=== PATIENT | male | born 1960 | race Caucasian/White ===

== ENCOUNTER → 2017-01-03 | Outpatient (CLI) | payer BC ==
[~2017-01-03] MED LIST: AMIT10TA PO; AMIT25TA PO; AZEL0.1S3; DIGO0.127 PO; E-Z-GAS II EFFERVESCENT PACKET (SODIUM BICARB./CITRIC ACID/SIMETHICONE) As Ordered ONE; E-Z-HD 98% w/w 340GM SUSP BTL As Ordered ONE; E-Z-PAQUE 96% w/w SUSP 176GM BTL As Ordered ONE; ESCI10TA2 PO; ESCI20TA PO; FOLI1TAB2 PO; HYDR200T3 PO; LOSA100T36 PO; MAGN400T5 PO; METO-209 PO; METO100T PO; MULT1TAB10 PO; OMEP40CA2 PO; THIA100TA PO; VITA100072 PO; VITMTA PO; XARE20TA PO; ZOLP10TA2 PO
--- NOTE | 2017-01-03 16:53 | REP ---
ESOPHAGRAM, AIR CONTRAST: The procedure was performed under the direct supervision of Dr. Cotter. The images were reviewed with Dr. Cotter. A single view PA chest x-ray is submitted as a commercial production editor film. The superior mediastinal structures are midline. The heart size is within normal limits. There is a hiatal hernia visualized. The lungs are clear. There is a multi-lead AICD pace maker in place. Liquid barium and gas-producing granules were given in the erect position as well as liquid barium in the prone oblique position in order to perform a double-contrast esophagram examination. The oral and pharyngeal stages of deglutition are unremarkable. Esophageal transport is prompt and efficient and there is no esophagitis or stricture. There is a hiatal hernia present. There is a nonobstructive Schatzki's B ring identified. There is gastroesophageal reflux demonstrated to above the level of the sweta. IMPRESSION: There is a hiatal hernia present. There is a nonobstructive Schatzki's B ring identified. There is gastroesophageal reflux demonstrated to above the level of the sweta. 1 minute and 23 seconds of fluoroscopic time was utilized for this procedure. Reviewed by BHUMI Davis 01/04/2017 03:36 PEdited and Signed by Harsha Cotter MD 01/04/2017 04:26 P
== END ==
LOC: M RAD 09:06
PROVIDERS: ATTEND Emergency Medicine
DX: R13.14 Dysphagia, pharyngoesophageal phase (principal); K44.9 Diaphragmatic hernia without obstruction or gangrene; K22.2 Esophageal obstruction

== ENCOUNTER → 2017-07-19 | Outpatient (REF) | payer BC ==
[~2017-07-19] MED LIST changes: -E-Z-GAS II EFFERVESCENT PACKET (SODIUM BICARB./CITRIC ACID/SIMETHICONE) As Ordered ONE; -E-Z-HD 98% w/w 340GM SUSP BTL As Ordered ONE; -E-Z-PAQUE 96% w/w SUSP 176GM BTL As Ordered ONE; -FOLI1TAB2 PO; +FOLI1TAB4 PO; -METO-209 PO; -METO100T PO; +METO100T5 PO; +METO1TAB33 PO
[2017-07-19 13:17] LABS: ALBUMIN 3.2 GM/DL (3.2-5.2); ALBUMIN/GLOBULIN RATIO 0.74 (1.00-1.93); ALKALINE PHOSPHATASE 61 U/L (45-117); ALT/SGPT 62 U/L (12-78); ANION GAP 9 MEQ/L (8-16); AST/SGOT 48 U/L (15-37); BILIRUBIN,TOTAL 0.7 MG/DL (0.2-1.0); BLOOD UREA NITROGEN 14 MG/DL (7-18); CALCIUM LEVEL 8.5 MG/DL (8.5-10.1); CARBON DIOXIDE LEVEL 26 MEQ/L (21-32); CHLORIDE LEVEL 105 MEQ/L (98-107); CHOLESTEROL LEVEL 170 MG/DL (<200); DIGOXIN LEVEL 0.5 NG/ML (0.5-2.0); FREE T4 0.77 NG/DL (0.76-1.46); GLOMERULAR FILTRATION RATE > 60.0 (>56); GLUCOSE, FASTING 92 MG/DL (70-105); MAGNESIUM LEVEL 2.1 MG/DL (1.8-2.4); POTASSIUM SERUM 4.1 MEQ/L (3.5-5.1); SODIUM LEVEL 140 MEQ/L (136-145); TOTAL PROTEIN 7.5 GM/DL (6.4-8.2); TRIGLYCERIDES LEVEL 217 MG/DL (<150)
== END ==
LOC: M LABDRAW1 09:20
PROVIDERS: ATTEND Emergency Medicine
DX: E05.90 Thyrotoxicosis, unspecified without thyrotoxic crisis or storm (principal); E55.9 Vitamin D deficiency, unspecified; I48.2 Chronic atrial fibrillation; R73.01 Impaired fasting glucose

== ENCOUNTER → 2018-01-24 | Outpatient (CLI) | payer BC ==
[2018-01-24 10:21] LABS: ESTIMATED AVERAGE GLUCOSE 103 MG/DL (60-110); HEMOGLOBIN A1c 5.2 %
[2018-01-24 11:02] LABS: ALBUMIN 3.4 GM/DL (3.2-5.2); ALBUMIN/GLOBULIN RATIO 0.74 (1.00-1.93); ALKALINE PHOSPHATASE 71 U/L (45-117); ALT/SGPT 50 U/L (12-78); ANION GAP 7 MEQ/L (8-16); AST/SGOT 49 U/L (7-37); BILIRUBIN,TOTAL 0.9 MG/DL (0.2-1.0); BLOOD UREA NITROGEN 15 MG/DL (7-18); CALCIUM LEVEL 8.5 MG/DL (8.5-10.1); CARBON DIOXIDE LEVEL 27 MEQ/L (21-32); CHLORIDE LEVEL 104 MEQ/L (98-107); CHOLESTEROL LEVEL 190 MG/DL (<200); CHOLESTEROL RISK RATIO 5.277 (<5); CREATININE FOR GFR 1.19 MG/DL (0.70-1.30); DIGOXIN LEVEL 0.4 NG/ML (0.5-2.0); FREE T4 0.93 NG/DL (0.76-1.46); GLOMERULAR FILTRATION RATE > 60.0 (>56); GLUCOSE, FASTING 97 MG/DL (70-100); HDL CHOLESTEROL 36 MG/DL (>40); LDL CHOLESTEROL 109.2 MG/DL (<100); MAGNESIUM LEVEL 2.3 MG/DL (1.8-2.4); NON-HDL-C 154 MG/DL; POTASSIUM SERUM 4.2 MEQ/L (3.5-5.1); SODIUM LEVEL 138 MEQ/L (136-145); TRIGLYCERIDES LEVEL 224 MG/DL (<150)
== END ==
LOC: M LAB 09:33
DX: E55.9 Vitamin D deficiency, unspecified (principal); I48.2 Chronic atrial fibrillation; R73.01 Impaired fasting glucose; E05.90 Thyrotoxicosis, unspecified without thyrotoxic crisis or storm
CPT/HCPCS: 80162

== ENCOUNTER → 2018-07-30 | Outpatient (CLI) | payer SELFPAY, BC ==
[2018-07-30 06:57] LABS: BASO # 0.1 10^3/uL (0.0-0.2); BASO % 0.7 % (0.0-1.0); EOS # 0.5 10^3/uL (0.0-0.50); EOS % 7.2 % (0.0-3.0); HEMATOCRIT 40.8 % (42.0-52.0); HEMOGLOBIN 14.4 g/dl (13.5-17.5); IMMATURE GRANULOCYTE % 0.3 % (0-3.0); LYMPH # 2.1 10^3/uL (1.5-4.5); LYMPH % 30.4 % (24.0-44.0); MEAN CORPUSCULAR HEMOGLOBIN 33.7 pg (27.0-33.0); MEAN CORPUSCULAR HGB CONC 35.3 g/dl (32.0-36.5); MEAN CORPUSCULAR VOLUME 95.6 fl (80.0-96.0); MONO # 0.7 10^3/uL (0.0-0.8); MONO % 9.8 % (0.0-5.0); NEUTROPHILS # 3.6 10^3/uL (1.8-7.7); NEUTROPHILS % 51.6 % (36.0-66.0); PLATELET COUNT, AUTOMATED 184 10^3/uL (150-450); RED BLOOD COUNT 4.27 10^6/uL (4.30-6.10); RED CELL DISTRIBUTION WIDTH 12.4 % (11.5-14.5); WHITE BLOOD COUNT 6.9 10^3/uL (4.0-10.0)
[2018-07-30 07:13] LABS: ESTIMATED AVERAGE GLUCOSE 100 MG/DL (60-110); HEMOGLOBIN A1c 5.1 %
[2018-07-30 07:31] LABS: ALBUMIN 3.1 GM/DL (3.2-5.2); ALKALINE PHOSPHATASE 62 U/L (45-117); ALT/SGPT 65 U/L (12-78); ANION GAP 11 MEQ/L (8-16); AST/SGOT 63 U/L (7-37); BILIRUBIN,TOTAL 0.4 MG/DL (0.2-1.0); BLOOD UREA NITROGEN 12 MG/DL (7-18); CALCIUM LEVEL 8.4 MG/DL (8.5-10.1); CARBON DIOXIDE LEVEL 25 MEQ/L (21-32); CHLORIDE LEVEL 106 MEQ/L (98-107); CHOLESTEROL LEVEL 173 MG/DL (<200); CHOLESTEROL RISK RATIO 5.242 (<5); CREATININE FOR GFR 0.94 MG/DL (0.70-1.30); DIGOXIN LEVEL 0.3 NG/ML (0.5-2.0); FREE T4 0.94 NG/DL (0.76-1.46); GLOMERULAR FILTRATION RATE > 60.0 (>56); GLUCOSE, FASTING 92 MG/DL (70-100); HDL CHOLESTEROL 33 MG/DL (>40); LDL CHOLESTEROL 86.2 MG/DL (<100); MAGNESIUM LEVEL 2.1 MG/DL (1.8-2.4); NON-HDL-C 140 MG/DL; SODIUM LEVEL 142 MEQ/L (136-145); TOTAL PROTEIN 7.5 GM/DL (6.4-8.2); TRIGLYCERIDES LEVEL 269 MG/DL (<150)
[2018-07-30 10:03] LABS: TOTAL 25(OH) VITAMIN D 64.2 NG/ML (30.0-100.0)
== END ==
LOC: M LAB 06:20
DX: I48.2 Chronic atrial fibrillation (principal)
CPT/HCPCS: 80162

== ENCOUNTER → 2018-09-23 | Outpatient (REF) | payer BC ==
[2018-09-23 16:02] LABS: PSA SCREENING 0.43 NG/ML (< 4.0)
== END ==
LOC: M LABDRAW1 15:36
DX: N40.1 Benign prostatic hyperplasia with lower urinary tract symptoms (principal)
CPT/HCPCS: G0103

== ENCOUNTER → 2019-01-15 | Outpatient (REF) | payer BC ==
[~2019-01-15] MED LIST changes: +FOLI1TAB11 PO; -FOLI1TAB4 PO; -LOSA100T36 PO; +LOSA100T50 PO
[2019-01-21 00:06] LABS: FATS NEUTRAL Normal (.); FATS TOTAL Normal (.); PANCREATIC ELASTASE STOOL >500 (>200)
== END ==
LOC: M LAB REF 10:25
PROVIDERS: ATTEND Physician Assistant Medical
DX: R19.7 Diarrhea, unspecified (principal)

== ENCOUNTER → 2019-01-15 | Outpatient (CLI) | payer BC ==
[2019-01-15 07:37] LABS: BASO # 0.1 10^3/uL (0.0-0.2); BASO % 1.2 % (0.0-1.0); EOS # 0.6 10^3/uL (0.0-0.50); EOS % 8.4 % (0.0-3.0); HEMATOCRIT 45.9 % (42.0-52.0); HEMOGLOBIN 15.9 g/dl (13.5-17.5); LYMPH # 1.9 10^3/uL (1.5-4.5); LYMPH % 27.8 % (24.0-44.0); MEAN CORPUSCULAR HEMOGLOBIN 33.1 pg (27.0-33.0); MEAN CORPUSCULAR HGB CONC 34.6 g/dl (32.0-36.5); MEAN CORPUSCULAR VOLUME 95.6 fl (80.0-96.0); MONO # 0.8 10^3/uL (0.0-0.8); MONO % 11.1 % (0.0-5.0); NEUTROPHILS # 3.5 10^3/uL (1.8-7.7); NEUTROPHILS % 51.2 % (36.0-66.0); PLATELET COUNT, AUTOMATED 178 10^3/uL (150-450); WHITE BLOOD COUNT 6.8 10^3/uL (4.0-10.0)
[2019-01-15 08:13] LABS: ALT/SGPT 61 U/L (12-78); BILIRUBIN,TOTAL 0.7 MG/DL (0.2-1.0); BLOOD UREA NITROGEN 10 MG/DL (7-18); CALCIUM LEVEL 8.3 MG/DL (8.5-10.1); CARBON DIOXIDE LEVEL 26 MEQ/L (21-32); CHLORIDE LEVEL 106 MEQ/L (98-107); CREATININE FOR GFR 0.92 MG/DL (0.70-1.30); FREE T4 0.94 NG/DL (0.76-1.46); GLOMERULAR FILTRATION RATE > 60.0 (>56); GLUCOSE, FASTING 100 MG/DL (70-100); SODIUM LEVEL 139 MEQ/L (136-145); TOTAL PROTEIN 7.6 GM/DL (6.4-8.2)
== END ==
LOC: M LAB 06:58
PROVIDERS: ATTEND Physician Assistant Medical
DX: R19.7 Diarrhea, unspecified (principal)

== ENCOUNTER → 2019-01-29 | Outpatient (CLI) | payer BC ==
[~2019-01-29] MED LIST changes: +AZEL1SPR3; +DIGO0.12 PO; +E-Z-GAS II EFFERVESCENT PACKET (SODIUM BICARB./CITRIC ACID/SIMETHICONE) As Ordered ONE; +E-Z-HD 98% w/w 340GM SUSP BTL As Ordered ONE; +E-Z-PAQUE 96% w/w SUSP 176GM BTL As Ordered ONE
--- NOTE | 2019-01-29 17:20 | REP ---
Esophagram The procedure was performed under the direct supervision of Dr. Mullen. The images were reviewed with Dr. Mullen. A single view PA chest x-ray is submitted as a drafter cartographic film. The superior mediastinal structures are midline. The heart size is within normal limits. The lungs are clear. There is a multi lead AICD pacer with an epicardial lead unchanged from the previous chest x-ray performed on 07/16/2016. Liquid barium and gas producing granules were given in the erect position as well as liquid barium in the prone oblique positions in order to perform a double contrast esophagram examination. The oral and pharyngeal stages of deglutition are unremarkable. Esophageal transport is prompt and efficient and there is no esophagitis, stricture or mucosal ring. There is a sliding type hiatal hernia. There is mild gastroesophageal reflux demonstrated to below the level of the sweta. Impression: There is a sliding type hiatal hernia. There is mild gastroesophageal reflux demonstrated to below the level of the sweta. 0.9 minutes of fluoro time was utilized for this procedure. Reviewed by BHUMI Davis 01/29/2019 05:10 P Electronically Signed by Vitor Mullen MD 01/29/2019 05:10 P
== END ==
LOC: M RAD 07:33
PROVIDERS: ATTEND Physician Assistant Medical
DX: K44.9 Diaphragmatic hernia without obstruction or gangrene (principal); K21.9 Gastro-esophageal reflux disease without esophagitis

== ENCOUNTER 2019-02-12 09:43 | Day surgery (SDC) | payer BC ==
[~2019-02-12] VITALS: Ht 180.3 cm; Wt 110.7 kg
[~2019-02-12 09:43] MED LIST changes: -E-Z-GAS II EFFERVESCENT PACKET (SODIUM BICARB./CITRIC ACID/SIMETHICONE) As Ordered ONE; -E-Z-HD 98% w/w 340GM SUSP BTL As Ordered ONE; -E-Z-PAQUE 96% w/w SUSP 176GM BTL As Ordered ONE
[2019-02-12] MEDS ORDERED: NS 1,000 ML IV ONE (10:30)
[2019-02-12] MEDS ORDERED: PROPOFOL 200 MG/20 ML VIAL As Ordered ONE ×3 (11:17→11:31)
[2019-02-12] MEDS ORDERED: LIDOCAINE 2% INJ 100 MG/5 ML SDV (FOR ANES.) As Ordered ONE (11:18)
--- NOTE | 2019-02-12 11:31 | ROOR ---
Patient Name: Maurilio Garcia Procedure Date: 02/12/2019 11:09 AM Date of : 1960 Age: 58 Room: [facility], [facility]IN [facility] Gender: Male Note Status: Finalized Procedure: Upper GI endoscopy Indications: Dysphagia, Heartburn Providers: Alexei HARRINGTON MD Referring MD: Yvan Choudhary Requesting Provider: Medicines: Monitored Anesthesia Care Complications: No immediate complications. Procedure: Pre-Anesthesia Assessment: - The heart rate, respiratory rate, oxygen saturations, blood pressure, adequacy of pulmonary ventilation, and response to care were monitored throughout the procedure. The Endoscope was introduced through the mouth, and advanced to the second part of duodenum. The upper GI endoscopy was accomplished without difficulty. The patient tolerated the procedure well. Findings: A non-obstructing Schatzki ring was found in the lower third of the esophagus. A TTS dilator was passed through the scope. Dilation with an 18-19-20 mm balloon dilator was performed to 20 mm. The dilation site was examined and showed complete resolution of luminal narrowing. A small hiatal hernia was present. The exam was otherwise without abnormality. Impression: - Non-obstructing Schatzki ring. Dilated. - Small hiatal hernia. - The examination was otherwise normal. - No specimens collected. Recommendation: - Observe patient's clinical course. - Continue present medications. - Resume Xarelto (rivaroxaban) at prior dose tomorrow. Alexei Harrington MD Alexei HARRINGTON MD 02/12/2019 11:31:15 AM This report has been signed electronically. Number of Addenda: 0 Note Initiated On: 02/12/2019 11:09 AM Estimated Blood Loss: Estimated blood loss: none.
--- NOTE | 2019-02-12 11:45 | ROOR ---
Patient Name: Maurilio Garcia Procedure Date: 02/12/2019 11:11 AM Date of : 1960 Age: 58 Room: [facility] Gender: Male Note Status: Finalized Procedure: Colonoscopy Indications: High risk colon cancer surveillance: Personal history of colonic polyps, Last colonoscopy: December 2015, Incidental diarrhea noted Providers: Alexei HARRINGTON MD Referring MD: Yvan Choudhary Requesting Provider: Medicines: Monitored Anesthesia Care Complications: No immediate complications. Procedure: Pre-Anesthesia Assessment: - The heart rate, respiratory rate, oxygen saturations, blood pressure, adequacy of pulmonary ventilation, and response to care were monitored throughout the procedure. The Colonoscope was introduced through the anus and advanced to 10 cm into the ileum. The colonoscopy was performed without difficulty. The patient tolerated the procedure well. The quality of the bowel preparation was good. Findings: The perianal and digital rectal examinations were normal. A few small-mouthed diverticula were found in the sigmoid colon. The exam was otherwise normal throughout the examined colon. The terminal ileum appeared normal. Small Internal Hemorrhoids. Biopsies for histology were taken with a cold forceps for evaluation of microscopic colitis. Impression: - Minimal diverticulosis in the sigmoid colon and small Internal Hemorrhoids. - The colon is otherwise normal. - The terminal ileum ileum is normal. - Biopsies were taken with a cold forceps for evaluation of microscopic colitis. Recommendation: - Telephone endoscopist for pathology results in 2 weeks. Alexei Harrington MD Alexei HARRINGTON MD 02/12/2019 11:45:21 AM This report has been signed electronically. Number of Addenda: 0 Note Initiated On: 02/12/2019 11:11 AM Estimated Blood Loss: Estimated blood loss: none.
[2019-02-12 12:31] VITALS: BP 142/70
== END 2019-02-12 12:24 | disposition home or self-care (01) ==
LOC: M OPP 09:43
PROVIDERS: ATTEND Internal Medicine Gastroenterology
DX: Z12.11 Encounter for screening for malignant neoplasm of colon (principal); Z86.010 Personal history of colon polyps; K57.30 Diverticulosis of large intestine without perforation or abscess without bleeding; K64.8 Other hemorrhoids; K22.2 Esophageal obstruction; K44.9 Diaphragmatic hernia without obstruction or gangrene; R13.10 Dysphagia, unspecified; R12 Heartburn; G47.30 Sleep apnea, unspecified; I48.0 Paroxysmal atrial fibrillation; I42.0 Dilated cardiomyopathy; Z79.899 Other long term (current) drug therapy; Z95.810 Presence of automatic (implantable) cardiac defibrillator

== ENCOUNTER → 2019-02-17 | Outpatient (CLI) | payer BC ==
--- NOTE | 2019-02-17 10:48 | REP ---
RIGHT UPPER QUADRANT ULTRASOUND: Real-time sonographic evaluation of the right upper quadrant is performed. Gallbladder demonstrates no evidence of intraluminal sludge or calculi, wall thickening or pericholecystic fluid. There is no intrahepatic or extrahepatic biliary dilatation, common bile duct measuring 5 mm. Liver is moderately enlarged measuring approximately 21.7 cm in maximum craniocaudal dimension in the right midclavicular line. No liver mass is seen. There is diffuse heterogenous increased echotexture suggesting diffuse fibrofatty infiltration. The pancreas is grossly unremarkable but not optimally seen due to overlying bowel gas. Right kidney demonstrates no hydronephrosis with normal size of 12.3 cm in length. IMPRESSION: Findings compatible with diffuse fibrofatty infiltration of the liver. Moderate hepatomegaly. Electronically Signed by Vitor Mullen MD 02/18/2019 10:06 A
== END ==
LOC: M RAD 07:41
PROVIDERS: ATTEND Physician Assistant Medical
DX: R94.5 Abnormal results of liver function studies (principal); K76.0 Fatty (change of) liver, not elsewhere classified; R16.0 Hepatomegaly, not elsewhere classified

== ENCOUNTER → 2019-03-31 | Outpatient (CLI) | payer BC ==
[~2019-03-31] MED LIST changes: +VITA100018 PO; -VITA100072 PO
[2019-03-31 15:40] LABS: IRON (FE) 99 UG/DL (65-175); PERCENT SATURATION 33.3 % (19.7-50.0); TOTAL IRON BINDING CAPACITY 297 UG/DL (250-450)
[2019-03-31 15:41] LABS: INR 1.07
[2019-04-01 10:07] LABS: HEPATITIS B SURFACE ANTIGEN NEGATIVE (NEGATIVE)
[2019-04-01 10:34] LABS: HEPATITIS B CORE ANTIBODY IGM NEGATIVE (NEGATIVE)
[2019-04-01 10:36] LABS: HEPATITIS A ANTIBODY IGM NEGATIVE (NEGATIVE)
[2019-04-02 14:27] LABS: CERULOPLASMIN 19.9 mg/dL (16.0-31.0)
[2019-04-03 18:47] LABS: ANCA-ATYPICAL <1:20 titer (Neg:<1:20); ANTI DOUBLE STRAND-DNA AB 46 IU/mL (0-9); ANTI-MITOCHONDRIAL ANTIBODY <20.0 Units (0.0-20.0); ANTINUCLEAR ANTIBODIES DIRECT Positive (Negative); CYTOPLASMIC NEUTROP AB ANCA-C <1:20 titer (Neg:<1:20); PERINUCLEAR AB ANCA-P <1:20 titer (Neg:<1:20); RNP ANTIBODIES <0.2 AI (0.0-0.9); SJOGREN'S ANTI SS-A <0.2 AI (0.0-0.9); SJOGREN'S ANTI SS-B <0.2 AI (0.0-0.9); SMITH ANTIBODIES <0.2 AI (0.0-0.9)
== END ==
LOC: M LAB 14:06
PROVIDERS: ATTEND Physician Assistant Medical
DX: R94.5 Abnormal results of liver function studies (principal)

== ENCOUNTER → 2019-04-17 | Outpatient (CLI) | payer BC | LOC: M LAB 07:38 | PROVIDERS: ATTEND Physician Assistant Medical | DX: R94.5 Abnormal results of liver function studies (principal) ==

== ENCOUNTER → 2019-06-01 | Outpatient (CLI) | payer BC ==
[~2019-06-01] MED LIST changes: +LIDOCAINE 1% MDV 20ML VIAL As Ordered ONE
--- NOTE | 2019-06-02 17:46 | REP ---
Ultrasound-guided liver biopsy This procedure was performed by Aixa Watson [facility], under the direct supervision of Dr. Mullen. The risks and benefits of the procedure were explained to the patient and informed consent was obtained both verbally and written. Directly prior to the start of the procedure, a formal timeout was done in the procedure room. The left lobe of the liver was localized using ultrasound guidance. The skin was prepped and draped in a sterile fashion. 10 ml of 1% lidocaine was used as a local anesthetic. Using ultrasound guidance a small skin josh was made and a 19/20 gauge coaxial needle biopsy system was inserted and advanced into the liver. 4 core biopsy samples were obtained and sent to the lab. The patient tolerated the procedure well and there were no immediate complications. After the appropriate monitored convalescence the patient was discharged home from the department. Reviewed by BHUMI Berger 06/01/2019 01:36 P Electronically Signed by Vitor Mullen MD 06/02/2019 05:37 P
== END ==
LOC: M RADPRO 09:56
PROVIDERS: ATTEND Internal Medicine Gastroenterology
DX: K75.81 Nonalcoholic steatohepatitis (NASH) (principal); K74.2 Hepatic fibrosis with hepatic sclerosis; R94.5 Abnormal results of liver function studies; R93.3 Abnormal findings on diagnostic imaging of other parts of digestive tract; Z79.899 Other long term (current) drug therapy

== ENCOUNTER → 2019-09-25 | Outpatient (CLI) | payer BC ==
[~2019-09-25] MED LIST changes: -LIDOCAINE 1% MDV 20ML VIAL As Ordered ONE; -OMEP40CA2 PO; +OMEP40CA97 PO
[2019-09-25 10:58] LABS: BASO # 0.1 10^3/uL (0.0-0.2); BASO % 1.3 % (0.0-1.0); EOS # 0.4 10^3/uL (0.0-0.5); EOS % 6.8 % (0.0-3.0); HEMATOCRIT 46.1 % (42.0-52.0); HEMOGLOBIN 15.8 g/dl (13.5-17.5); LYMPH # 1.6 10^3/uL (1.5-5.0); LYMPH % 25.1 % (24.0-44.0); MEAN CORPUSCULAR HEMOGLOBIN 33.7 pg (27.0-33.0); MEAN CORPUSCULAR HGB CONC 34.3 g/dl (32.0-36.5); MEAN CORPUSCULAR VOLUME 98.3 fl (80.0-96.0); MONO # 0.7 10^3/uL (0.0-0.8); MONO % 11.7 % (0.0-5.0); NEUTROPHILS # 3.4 10^3/uL (1.5-8.5); NEUTROPHILS % 54.8 % (36.0-66.0); PLATELET COUNT, AUTOMATED 174 10^3/uL (150-450); RED BLOOD COUNT 4.69 10^6/uL (4.30-6.10); WHITE BLOOD COUNT 6.2 10^3/uL (4.0-10.0)
[2019-09-25 11:38] LABS: ALBUMIN 3.1 GM/DL (3.2-5.2); ALT/SGPT 71 U/L (12-78); BILIRUBIN,TOTAL 0.8 MG/DL (0.2-1.0); BLOOD UREA NITROGEN 12 MG/DL (7-18); CALCIUM LEVEL 8.6 MG/DL (8.5-10.1); CARBON DIOXIDE LEVEL 29 MEQ/L (21-32); CHLORIDE LEVEL 104 MEQ/L (98-107); CHOLESTEROL LEVEL 205 MG/DL (<200); CHOLESTEROL RISK RATIO 5.125 (<5); CREATININE FOR GFR 0.98 MG/DL (0.70-1.30); FREE T4 0.87 NG/DL (0.76-1.46); GLOMERULAR FILTRATION RATE > 60.0 (>56); GLUCOSE, FASTING 92 MG/DL (70-100); HDL CHOLESTEROL 40 MG/DL (>40); LDL CHOLESTEROL 125 MG/DL (<100); NON-HDL-C 165 MG/DL; POTASSIUM SERUM 4.1 MEQ/L (3.5-5.1); SODIUM LEVEL 140 MEQ/L (136-145); TOTAL PROTEIN 7.5 GM/DL (6.4-8.2); TRIGLYCERIDES LEVEL 199 MG/DL (<150)
[2019-09-25 11:39] LABS: HEMOGLOBIN A1c 5.2 %
[2019-09-25 11:40] LABS: TOTAL 25(OH) VITAMIN D 68.6 NG/ML (30.0-100.0)
== END ==
LOC: M LAB 10:13
PROVIDERS: ATTEND Family Medicine
DX: I11.9 Hypertensive heart disease without heart failure (principal); R73.01 Impaired fasting glucose; E05.90 Thyrotoxicosis, unspecified without thyrotoxic crisis or storm; E55.9 Vitamin D deficiency, unspecified

== ENCOUNTER → 2020-06-02 | Outpatient (CLI) | payer BC ==
[~2020-06-02] MED LIST changes: -DIGO0.12 PO; +DIGO0.123 PO
--- NOTE | 2020-06-03 03:51 | REP ---
REASON: Strain. PRIORS: None. There is mild posterior disc space narrowing and anterior lipping at every level. Vertebral body height and alignment is within normal limits. There is no spondylolysis or spondylolisthesis. Scattered partial syndesmophytes/marginal osteophytes are seen bilaterally. Pedicles are intact bilaterally. IMPRESSION: Chronic changes, as described above. Electronically Signed by Cristi Goyal DO 06/03/2020 09:14 A
== END ==
LOC: M WUC 11:31
PROVIDERS: ATTEND Physician Assistant
DX: S39.012A Strain of muscle, fascia and tendon of lower back, initial encounter (principal); X58.XXXA Exposure to other specified factors, initial encounter; Y92.89 Other specified places as the place of occurrence of the external cause

== ENCOUNTER → 2020-08-25 | Outpatient (CLI) | payer BC, OTHER ==
--- NOTE | 2020-08-26 13:05 | REPVR ---
PROCEDURE INFORMATION: Exam: CT Lumbar Spine Without Contrast Exam date and time: 08/25/2020 12:47 PM Age: 59 years old Clinical indication: Other: Disc degeneration, R/O hnp/stenosis TECHNIQUE: Imaging protocol: Computed tomography images of the lumbar spine without contrast. Radiation optimization: All CT scans at this facility use at least one of these dose optimization techniques: automated exposure control; mA and/or kV adjustment per patient size (includes targeted exams where dose is matched to clinical indication); or iterative reconstruction. COMPARISON: CR SPINE LS COMPLETE 06/02/2020 11:47 AM FINDINGS: Vertebrae: Normal alignment. There is worsening compression of the L4 vertebral body superior endplate now 30-35% Discs/Spinal canal/Neural foramina: T12/L1: No acute abnormality. L1/L2: Mild foraminal narrowing due to spurring bilaterally. No disc protrusion, disc extrusion or spinal stenosis. L2/3: Central disc bulging. No focal central protrusion or extrusion. No spinal stenosis. Mild to moderate foraminal narrowing due to spurring bilaterally. L3/4: Minimal indentation upon the anterior thecal sac due to the superior posterior corner of L4. There is spinal stenosis, minimal at 9.1 mm. There is a small foraminal protrusion on the right with mild to moderate foraminal narrowing. There is a small amount disc bulging mildly narrowing the left foramina. There is no central protrusion or extrusion. L4/5: There is diffuse central disc bulging. There is spinal stenosis at 7 mm. There is no focal protrusion or extrusion. Mild foraminal narrowing due to spurring is seen bilaterally. L5/S1: No acute abnormality except for mild foraminal narrowing on the left due to spurring. Soft tissues: Unremarkable. Arteries: There is an aneurysm at 22 x 20 mm of the left common iliac artery. IMPRESSION: Increasing L4 compression fracture since the plain film. Spinal stenosis mild at L3/4 moderate at L4/5. Foraminal narrowing as above. 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 Electronically signed by: Carlton Whaley On 08/25/2020 15:38:03 PM
== END ==
LOC: M RAD 12:29
PROVIDERS: ATTEND Physician Assistant
DX: M51.36 Other intervertebral disc degeneration, lumbar region (principal); Z95.0 Presence of cardiac pacemaker; M25.78 Osteophyte, vertebrae; M51.26 Other intervertebral disc displacement, lumbar region; I72.3 Aneurysm of iliac artery

== ENCOUNTER → 2021-01-24 | Outpatient (CLI) | payer OTHER ==
[~2021-01-24] MED LIST changes: -AMIT10TA PO; +AMIT10TA7 PO; -AMIT25TA PO; +AMIT25TA17 PO; +ESCI10TA16 PO; -ESCI10TA2 PO; -ESCI20TA PO; +ESCI20TA16 PO
[2021-01-24 14:15] LABS: BASO # 0.1 10^3/uL (0.0-0.2); BASO % 0.9 % (0.0-1.0); EOS # 0.3 10^3/uL (0.0-0.5); HEMOGLOBIN 15.6 g/dl (13.5-17.5); LYMPH # 1.2 10^3/uL (1.5-5.0); LYMPH % 23.4 % (24.0-44.0); MEAN CORPUSCULAR HEMOGLOBIN 33.7 pg (27.0-33.0); MEAN CORPUSCULAR HGB CONC 33.9 g/dl (32.0-36.5); MEAN CORPUSCULAR VOLUME 99.4 fl (80.0-96.0); MONO # 0.6 10^3/uL (0.0-0.8); MONO % 11.7 % (2.0-8.0); NEUTROPHILS # 3.1 10^3/uL (1.5-8.5); PLATELET COUNT, AUTOMATED 158 10^3/uL (150-450); RED BLOOD COUNT 4.63 10^6/uL (4.30-6.10); WHITE BLOOD COUNT 5.3 10^3/uL (4.0-10.0)
[2021-01-24 15:09] LABS: ALT/SGPT 67 U/L (12-78); BLOOD UREA NITROGEN 13 MG/DL (7-18); CALCIUM LEVEL 8.9 MG/DL (8.5-10.1); CARBON DIOXIDE LEVEL 28 MEQ/L (21-32); CHLORIDE LEVEL 105 MEQ/L (98-107); CHOLESTEROL LEVEL 182 MG/DL (<200); CHOLESTEROL RISK RATIO 3.791 (<5); CREATININE FOR GFR 1.04 MG/DL (0.70-1.30); GLOMERULAR FILTRATION RATE > 60.0 (>56); GLUCOSE, FASTING 104 MG/DL (70-100); HDL CHOLESTEROL 48 MG/DL (>40); LDL CHOLESTEROL 104 MG/DL (<100); NON-HDL-C 134 MG/DL; POTASSIUM SERUM 6.3 MEQ/L (3.5-5.1); SODIUM LEVEL 136 MEQ/L (136-145); TOTAL 25(OH) VITAMIN D 65.2 NG/ML (30.0-100.0); TOTAL PROTEIN 8.2 GM/DL (6.4-8.2); TRIGLYCERIDES LEVEL 151 MG/DL (<150)
== END ==
LOC: M PLALAB 10:22
PROVIDERS: ATTEND Nurse Practitioner Family
DX: I48.91 Unspecified atrial fibrillation (principal); E55.9 Vitamin D deficiency, unspecified; Z79.899 Other long term (current) drug therapy

== ENCOUNTER → 2021-01-25 | Outpatient (CLI) | payer OTHER | LOC: M PLALAB 11:12 | PROVIDERS: ATTEND Nurse Practitioner Family | DX: E87.5 Hyperkalemia (principal) ==

== ENCOUNTER → 2021-04-14 | Outpatient (CLI) | payer OTHER | LOC: M LABSMTC 09:39 | PROVIDERS: ATTEND Internal Medicine Cardiovascular Disease | DX: Z20.828 Contact with and (suspected) exposure to other viral communicable diseases (principal); Z11.59 Encounter for screening for other viral diseases ==

== ENCOUNTER → 2021-07-06 | Outpatient (CLI) | payer OTHER ==
[~2021-07-06] MED LIST changes: +OMEP40CA4 PO; -OMEP40CA97 PO
[2021-07-06 11:17] LABS: BASO # 0.1 10^3/uL (0.0-0.2); EOS # 0.5 10^3/uL (0.0-0.5); EOS % 7.6 % (0.0-3.0); HEMATOCRIT 47.1 % (42.0-52.0); HEMOGLOBIN 16.2 g/dl (13.5-17.5); LYMPH # 1.4 10^3/uL (1.5-5.0); LYMPH % 22.6 % (24.0-44.0); MEAN CORPUSCULAR HEMOGLOBIN 33.8 pg (27.0-33.0); MEAN CORPUSCULAR HGB CONC 34.4 g/dl (32.0-36.5); MEAN CORPUSCULAR VOLUME 98.1 fl (80.0-96.0); MONO # 0.7 10^3/uL (0.0-0.8); MONO % 10.6 % (2.0-8.0); NEUTROPHILS # 3.6 10^3/uL (1.5-8.5); NEUTROPHILS % 57.9 % (36.0-66.0); PLATELET COUNT, AUTOMATED 163 10^3/uL (150-450); WHITE BLOOD COUNT 6.2 10^3/uL (4.0-10.0)
[2021-07-06 12:07] LABS: ALT/SGPT 64 U/L (12-78); BILIRUBIN,TOTAL 0.7 MG/DL (0.2-1.0); BLOOD UREA NITROGEN 13 MG/DL (7-18); CALCIUM LEVEL 9.1 MG/DL (8.5-10.1); CARBON DIOXIDE LEVEL 29 MEQ/L (21-32); CHLORIDE LEVEL 105 MEQ/L (98-107); CHOLESTEROL LEVEL 191 MG/DL (<200); CHOLESTEROL RISK RATIO 4.441 (<5); GLOMERULAR FILTRATION RATE > 60.0 (>56); GLUCOSE, FASTING 80 MG/DL (70-100); HDL CHOLESTEROL 43 MG/DL (>40); LDL CHOLESTEROL 117 MG/DL (<100); NON-HDL-C 148 MG/DL; POTASSIUM SERUM 4.2 MEQ/L (3.5-5.1); SODIUM LEVEL 138 MEQ/L (136-145); TOTAL PROTEIN 7.9 GM/DL (6.4-8.2); TRIGLYCERIDES LEVEL 156 MG/DL (<150)
== END ==
LOC: M PLALAB 09:01
PROVIDERS: ATTEND Family Medicine
DX: I11.9 Hypertensive heart disease without heart failure (principal)

== ENCOUNTER 2022-04-18 18:21 | Emergency (ER) | payer OTHER ==
[~2022-04-18] VITALS: Ht 180.3 cm; Wt 115.4 kg
[~2022-04-18 18:21] MED LIST changes: +LOSA100T45 PO; -LOSA100T50 PO
[2022-04-18] MEDS ORDERED: NS 1,000 ML IV ONE (18:45)
[2022-04-18] MEDS ORDERED: ASPIRIN 81 MG CHEW TABLET PO ONE (18:45)
[2022-04-18] MEDS ORDERED: AMIODARONE HCL 150 MG in IV 1 EA IV STA ×2 (18:46→18:55)
[2022-04-18] MEDS ORDERED: AMIODARONE HCL 150 MG/100 ML PREMIXED BAG (NEXTERONE) (J0282 PER 30MG) As Ordered ONE (18:47)
[2022-04-18] MEDS ORDERED: AMIODARONE 150MG/3ML INJ (J0282) IVP STA (18:49)
[2022-04-18] MEDS ORDERED: fentaNYL 100 MCG/2 ML INJECTION IV ONE (18:50)
[2022-04-18 18:58] LABS: BASO # 0.1 10^3/uL (0.0-0.2); BASO % 0.8 % (0.0-1.0); EOS # 0.4 10^3/uL (0.0-0.5); EOS % 4.7 % (0.0-3.0); HEMATOCRIT 42.9 % (42.0-52.0); HEMOGLOBIN 15.1 g/dl (13.5-17.5); LYMPH # 1.7 10^3/uL (1.5-5.0); LYMPH % 22.4 % (24.0-44.0); MEAN CORPUSCULAR HEMOGLOBIN 34.2 pg (27.0-33.0); MEAN CORPUSCULAR HGB CONC 35.2 g/dl (32.0-36.5); MEAN CORPUSCULAR VOLUME 97.3 fl (80.0-96.0); MONO % 12.9 % (2.0-8.0); NEUTROPHILS # 4.5 10^3/uL (1.5-8.5); NEUTROPHILS % 58.9 % (36.0-66.0); PLATELET COUNT, AUTOMATED 182 10^3/uL (150-450); RED BLOOD COUNT 4.41 10^6/uL (4.30-6.10); WHITE BLOOD COUNT 7.7 10^3/uL (4.0-10.0)
[2022-04-18 19:09] LABS: INR 1.12; PROTHROMBIN TIME 14.8 SECONDS (12.7-14.5)
[2022-04-18] MEDS ORDERED: AMIODARONE HCL 360 MG in IV 1 EA IV SCH (19:15)
[2022-04-18 19:29] LABS: CK-MB VALUE MASS 3.7 NG/ML (<3.6); MB/CK RELATIVE INDEX 1.81 (< OR =4)
[2022-04-18 19:35] LABS: BLOOD UREA NITROGEN 21 MG/DL (7-18); CARBON DIOXIDE LEVEL 22 MEQ/L (21-32); CHLORIDE LEVEL 109 MEQ/L (98-107); CREATININE FOR GFR 1.12 MG/DL (0.70-1.30); DIGOXIN LEVEL 0.4 NG/ML (0.5-2.0); GLOMERULAR FILTRATION RATE > 60.0 (>49); GLUCOSE, FASTING 109 MG/DL (70-100); POTASSIUM SERUM 4.3 MEQ/L (3.5-5.1); SODIUM LEVEL 137 MEQ/L (136-145)
[2022-04-18 22:42] LABS: RSV AMPLIFICATION NEGATIVE (NEGATIVE)
[2022-04-18 22:45] LABS: CK-MB VALUE MASS 10.8 NG/ML (<3.6); MB/CK RELATIVE INDEX 1.22 (< OR =4)
[2022-04-18] MEDS ORDERED: ENOXAPARIN 120MG/0.8ML SYRINGE (J1650 PER 10MG) SC ONE (22:50)
[2022-04-18 23:49] LABS: CK-MB VALUE MASS 11.7 NG/ML (<3.6); MB/CK RELATIVE INDEX 1.12 (< OR =4)
[2022-04-19 00:32] LABS: NT-PRO BNP 499 PG/ML (<125)
[2022-04-19] MEDS: AMIODARONE HCL 360 MG in IV 1 EA IV SCH ×4 (02:12→02:18)
[2022-04-19] MEDS ORDERED: NS 1,000 ML IV SCH (06:25)
[2022-04-19 11:38] VITALS: BP 132/70
[2022-04-19] MEDS ORDERED: ENOXAPARIN 120MG/0.8ML SYRINGE (J1650 PER 10MG) SC SCH (14:00)
== END 2022-04-19 11:38 | disposition short-term general hospital (02) ==
LOC: M ED 18:21 → EDBD 18:21 → M ED 04-19 11:38
DX: I21.4 Non-ST elevation (NSTEMI) myocardial infarction (principal); I47.2 Ventricular tachycardia; R94.31 Abnormal electrocardiogram [ECG] [EKG]; I10 Essential (primary) hypertension; F17.200 Nicotine dependence, unspecified, uncomplicated; Z86.79 Personal history of other diseases of the circulatory system; Z79.899 Other long term (current) drug therapy
CPT/HCPCS: 71045; 80048; 80162; 82550; 82553; 83735; 83880; 84443; 84484; 85025; 85610; 87631; 93005; 93041; 94760; 96365; 96366; 96375; 96376; 99285; J0282; J1650; J3010

== ENCOUNTER → 2022-06-09 | Outpatient (CLI) | payer MEDICARE ==
[2022-06-09 08:53] LABS: BASO # 0.1 10^3/uL (0.0-0.2); BASO % 1.2 % (0.0-1.0); EOS # 0.3 10^3/uL (0.0-0.5); EOS % 4.4 % (0.0-3.0); HEMATOCRIT 43.2 % (42.0-52.0); HEMOGLOBIN 14.4 g/dl (13.5-17.5); LYMPH # 1.4 10^3/uL (1.5-5.0); LYMPH % 21.4 % (24.0-44.0); MEAN CORPUSCULAR HEMOGLOBIN 33.5 pg (27.0-33.0); MEAN CORPUSCULAR HGB CONC 33.3 g/dl (32.0-36.5); MEAN CORPUSCULAR VOLUME 100.5 fl (80.0-96.0); MONO # 0.8 10^3/uL (0.0-0.8); MONO % 12.3 % (2.0-8.0); NEUTROPHILS % 60.4 % (36.0-66.0); PLATELET COUNT, AUTOMATED 176 10^3/uL (150-450); WHITE BLOOD COUNT 6.7 10^3/uL (4.0-10.0)
[2022-06-09 09:21] LABS: ALBUMIN 2.4 GM/DL (3.2-5.2); ALT/SGPT 43 U/L (12-78); BILIRUBIN,TOTAL 0.5 MG/DL (0.2-1.0); BLOOD UREA NITROGEN 14 MG/DL (7-18); CALCIUM LEVEL 8.5 MG/DL (8.8-10.2); CARBON DIOXIDE LEVEL 26 MEQ/L (21-32); CHLORIDE LEVEL 108 MEQ/L (98-107); CHOLESTEROL LEVEL 158 MG/DL (<200); CHOLESTEROL RISK RATIO 4.051 (<5); CREATININE FOR GFR 0.91 MG/DL (0.70-1.30); GLOMERULAR FILTRATION RATE > 60.0 (>49); GLUCOSE, FASTING 97 MG/DL (70-100); HDL CHOLESTEROL 39 MG/DL (>40); LDL CHOLESTEROL 93 MG/DL (<100); NON-HDL-C 119 MG/DL; POTASSIUM SERUM 4.4 MEQ/L (3.5-5.1); SODIUM LEVEL 141 MEQ/L (136-145); TOTAL PROTEIN 7.2 GM/DL (6.4-8.2); TRIGLYCERIDES LEVEL 129 MG/DL (<150)
== END ==
LOC: M LAB 08:22
PROVIDERS: ATTEND Family Medicine
DX: I42.9 Cardiomyopathy, unspecified (principal); Z79.899 Other long term (current) drug therapy

== ENCOUNTER → 2022-10-05 | Outpatient (CLI) | payer MEDICARE ==
[2022-10-05 10:54] LABS: HEMOGLOBIN A1c 5.3 %
[2022-10-05 10:59] LABS: ALBUMIN 2.7 GM/DL (3.2-5.2); ALT/SGPT 53 U/L (12-78); BLOOD UREA NITROGEN 12 MG/DL (7-18); CALCIUM LEVEL 8.4 MG/DL (8.8-10.2); CARBON DIOXIDE LEVEL 24 MEQ/L (21-32); CHLORIDE LEVEL 106 MEQ/L (98-107); CHOLESTEROL LEVEL 161 MG/DL (<200); CHOLESTEROL RISK RATIO 3.354 (<5); CREATININE FOR GFR 1.04 MG/DL (0.70-1.30); GLOMERULAR FILTRATION RATE > 60.0 (>49); GLUCOSE, FASTING 113 MG/DL (70-100); HDL CHOLESTEROL 48 MG/DL (>40); LDL CHOLESTEROL 97 MG/DL (<100); NON-HDL-C 113 MG/DL; POTASSIUM SERUM 3.9 MEQ/L (3.5-5.1); SODIUM LEVEL 139 MEQ/L (136-145); TOTAL PROTEIN 7.5 GM/DL (6.4-8.2); TRIGLYCERIDES LEVEL 79 MG/DL (<150)
== END ==
LOC: M PLALAB 08:48
PROVIDERS: ATTEND Registered Nurse
DX: I11.9 Hypertensive heart disease without heart failure (principal); Z79.899 Other long term (current) drug therapy

== ENCOUNTER → 2022-12-26 | Outpatient (CLI) | payer MEDICARE ==
[2022-12-26 15:43] LABS: HEMATOCRIT 43.4 % (42.0-52.0); HEMOGLOBIN 14.3 g/dl (13.5-17.5); MEAN CORPUSCULAR HEMOGLOBIN 34.2 pg (27.0-33.0); MEAN CORPUSCULAR HGB CONC 32.9 g/dl (32.0-36.5); MEAN CORPUSCULAR VOLUME 103.8 fl (80.0-96.0); PLATELET COUNT, AUTOMATED 173 10^3/uL (150-450); RED BLOOD COUNT 4.18 10^6/uL (4.30-6.10); WHITE BLOOD COUNT 6.6 10^3/uL (4.0-10.0)
[2022-12-26 15:50] LABS: CALCIUM LEVEL 8.4 MG/DL (8.3-10.6); CREATININE FOR GFR 1.35 MG/DL (0.70-1.30); GLOMERULAR FILTRATION RATE 57.2 (>49); POTASSIUM SERUM 4.4 MMOL/L (3.5-5.1)
== END ==
LOC: M PLALAB 12:45
PROVIDERS: ATTEND Nurse Practitioner Family
DX: I50.22 Chronic systolic (congestive) heart failure (principal)

== ENCOUNTER → 2023-04-18 | Outpatient (CLI) | payer MEDICARE ==
[~2023-04-18] MED LIST changes: -LOSA100T45 PO; +LOSA100T46 PO
[2023-04-18 14:38] LABS: BLOOD UREA NITROGEN 17 MG/DL (9-23); CALCIUM LEVEL 8.6 MG/DL (8.3-10.6); CARBON DIOXIDE LEVEL 28 MMOL/L (20-31); CHLORIDE LEVEL 103 MMOL/L (98-107); CREATININE FOR GFR 1.12 MG/DL (0.70-1.30); GLOMERULAR FILTRATION RATE > 60.0 (>49); GLUCOSE, FASTING 114 MG/DL (74-106); MAGNESIUM LEVEL 1.6 MG/DL (1.8-2.4); POTASSIUM SERUM 4.7 MMOL/L (3.5-5.1); SODIUM LEVEL 138 MMOL/L (136-145)
== END ==
LOC: M PLALAB 11:25
PROVIDERS: ATTEND Nurse Practitioner Family
DX: I48.91 Unspecified atrial fibrillation (principal)

== ENCOUNTER → 2023-06-20 | Outpatient (CLI) | payer MEDICARE ==
[~2023-06-20] MED LIST changes: -HYDR200T3 PO; +HYDR200T46 PO
[2023-06-20 13:19] LABS: HEMOGLOBIN A1c 5.3 % (4.0-6.0)
[2023-06-20 13:35] LABS: ALBUMIN 2.5 G/DL (3.2-5.2); ALKALINE PHOSPHATASE 88 U/L (46-116); ALT/SGPT 49 U/L (7.0-40); AST/SGOT 65 U/L (<34); BILIRUBIN,TOTAL 1.3 MG/DL (0.3-1.2); BLOOD UREA NITROGEN 13 MG/DL (9-23); CALCIUM LEVEL 8.1 MG/DL (8.3-10.6); CARBON DIOXIDE LEVEL 26 MMOL/L (20-31); CHLORIDE LEVEL 106 MMOL/L (98-107); CHOLESTEROL LEVEL 169 MG/DL (<200); CHOLESTEROL RISK RATIO 4.72 (<5); CREATININE FOR GFR 0.88 MG/DL (0.70-1.30); GLOMERULAR FILTRATION RATE > 60.0 (>49); GLUCOSE, FASTING 105 MG/DL (74-106); HDL CHOLESTEROL 35.8 MG/DL (>40); LDL CHOLESTEROL 108.4 MG/DL (<100); NON-HDL-C 133.2 MG/DL; SODIUM LEVEL 140 MMOL/L (136-145); TOTAL PROTEIN 7.2 G/DL (5.7-8.2); TRIGLYCERIDES LEVEL 124 MG/DL (<150)
== END ==
LOC: M PLALAB 09:20
PROVIDERS: ATTEND Registered Nurse
DX: I11.9 Hypertensive heart disease without heart failure (principal)

== ENCOUNTER 2023-10-15 09:13 | Day surgery (SDC) | payer MEDICARE ==
[~2023-10-15] VITALS: Ht 180.3 cm; Wt 112.9 kg
[~2023-10-15 09:13] MED LIST changes: +ACETYLCHOLINE OPHTH SOLN 1% 2ML (MIOCHOL-E) As Ordered ONE; -AMIT25TA17 PO; +AMIT25TA19 PO; +CEFUROXIME 1MG/0.1ML INTRACAMERAL INJ As Ordered ONE; +CYCLOPENTOLATE 1% OPHTH SOLN 2ML BTL OD SCH; +DICY-61 PO; +ELIQ5TAB PO; +ERGO500029 PO; +FLURBIPROFEN 0.03% OPHTH SOLN 2.5 ML OD SCH; +FURO20TA2 PO; +LEXA1TAB2 PO; +LIDOCAINE 1% SDV 5ML VIAL As Ordered ONE; +LR 1,000 ML IV SCH; +MAGN240P PO; +MIDAZOLAM INJ 2MG/2ML VIAL As Ordered ONE; +MULT-90 PO; +OFLOXACIN 0.3 % (OCUFLOX) OPTH SOL 5ML OD SCH; +PHENYLEPHRINE 2.5% OPHTH SOL 2ML OD SCH; +PROPARACAINE 0.5% OPHTH SOL 15ML OD ONE; +SOTA80TA32 PO; +SPIR-10 PO; +TETRACAINE 0.5% OPHTH SOLN 4ML OD SCH; +TROPICAMIDE 1% OPHTH SOLN 15ML OD SCH; +fentaNYL 100 MCG/2 ML INJECTION As Ordered ONE
[2023-10-15] MEDS ORDERED: BSS IRR 500ML/OMIDRIA 4ML IRR BAG (OR ONLY) As Ordered ONE (10:16)
[2023-10-15] MEDS ORDERED: TOBRADEX OPHTH OINT 3.5 GM As Ordered ONE (11:28)
[2023-10-15 11:32] VITALS: BP 139/78; TEMP 97.6; O2SAT 95
== END 2023-10-15 12:36 | disposition home or self-care (01) ==
LOC: M SDC 09:13
PROVIDERS: ATTEND Ophthalmology
DX: H25.11 Age-related nuclear cataract, right eye (principal); I48.91 Unspecified atrial fibrillation; G47.30 Sleep apnea, unspecified; Z79.899 Other long term (current) drug therapy; Z95.0 Presence of cardiac pacemaker; Z95.810 Presence of automatic (implantable) cardiac defibrillator
CPT/HCPCS: 66984; J0697; J1097; J2250; J3010; V2632

== ENCOUNTER 2023-11-26 09:08 | Day surgery (SDC) | payer MEDICARE ==
[~2023-11-26] VITALS: Ht 180.3 cm; Wt 113.4 kg
[~2023-11-26 09:08] MED LIST changes: -ACETYLCHOLINE OPHTH SOLN 1% 2ML (MIOCHOL-E) As Ordered ONE; -CYCLOPENTOLATE 1% OPHTH SOLN 2ML BTL OD SCH; +CYCLOPENTOLATE 1% OPHTH SOLN 2ML BTL OS SCH; -FLURBIPROFEN 0.03% OPHTH SOLN 2.5 ML OD SCH; -LR 1,000 ML IV SCH; -MIDAZOLAM INJ 2MG/2ML VIAL As Ordered ONE; -OFLOXACIN 0.3 % (OCUFLOX) OPTH SOL 5ML OD SCH; +OFLOXACIN 0.3 % (OCUFLOX) OPTH SOL 5ML OS SCH; -PHENYLEPHRINE 2.5% OPHTH SOL 2ML OD SCH; +PHENYLEPHRINE 2.5% OPHTH SOL 2ML OS SCH; -PROPARACAINE 0.5% OPHTH SOL 15ML OD ONE; +PROPARACAINE 0.5% OPHTH SOL 15ML OS ONE; -TETRACAINE 0.5% OPHTH SOLN 4ML OD SCH; -TROPICAMIDE 1% OPHTH SOLN 15ML OD SCH; +TROPICAMIDE 1% OPHTH SOLN 15ML OS SCH; -fentaNYL 100 MCG/2 ML INJECTION As Ordered ONE
[2023-11-26] MEDS ORDERED: MIDAZOLAM INJ 2MG/2ML VIAL As Ordered ONE (09:28)
[2023-11-26] MEDS ORDERED: fentaNYL 100 MCG/2 ML INJECTION As Ordered ONE (09:28)
[2023-11-26] MEDS ORDERED: BSS IRR 500ML/OMIDRIA 4ML IRR BAG (OR ONLY) As Ordered ONE (10:22)
[2023-11-26] MEDS ORDERED: TOBRADEX OPHTH OINT 3.5 GM As Ordered ONE (10:28)
[2023-11-26 10:36] VITALS: BP 109/58; TEMP 97.4; O2SAT 98
== END 2023-11-26 11:12 | disposition home or self-care (01) ==
LOC: M SDC 09:08
PROVIDERS: ATTEND Ophthalmology
DX: H25.12 Age-related nuclear cataract, left eye (principal); I10 Essential (primary) hypertension; I48.91 Unspecified atrial fibrillation; Z95.810 Presence of automatic (implantable) cardiac defibrillator; Z79.01 Long term (current) use of anticoagulants; Z79.899 Other long term (current) drug therapy; K21.9 Gastro-esophageal reflux disease without esophagitis; G47.30 Sleep apnea, unspecified; Z88.1 Allergy status to other antibiotic agents
CPT/HCPCS: 66984; J0697; J1097; J2250; J3010; V2632

== ENCOUNTER → 2023-12-11 | Outpatient (CLI) | payer MEDICARE ==
[~2023-12-11] MED LIST changes: -CEFUROXIME 1MG/0.1ML INTRACAMERAL INJ As Ordered ONE; -CYCLOPENTOLATE 1% OPHTH SOLN 2ML BTL OS SCH; -LIDOCAINE 1% SDV 5ML VIAL As Ordered ONE; -OFLOXACIN 0.3 % (OCUFLOX) OPTH SOL 5ML OS SCH; -PHENYLEPHRINE 2.5% OPHTH SOL 2ML OS SCH; -PROPARACAINE 0.5% OPHTH SOL 15ML OS ONE; -TROPICAMIDE 1% OPHTH SOLN 15ML OS SCH
== END ==
LOC: M WHC 12:10
PROVIDERS: ATTEND Registered Nurse
DX: N63.12 Unspecified lump in the right breast, upper inner quadrant (principal); N62 Hypertrophy of breast
CPT/HCPCS: 77066; G0279

== ENCOUNTER → 2023-12-13 | Outpatient (CLI) | payer MEDICARE ==
[2023-12-13 16:23] LABS: BASO # 0.1 10^3/uL (0.0-0.2); EOS # 0.5 10^3/uL (0.0-0.5); EOS % 8.3 % (0.0-3.0); HEMATOCRIT 43.1 % (42.0-52.0); HEMOGLOBIN 14.7 g/dl (13.5-17.5); LYMPH # 1.2 10^3/uL (1.5-5.0); LYMPH % 19.1 % (24.0-44.0); MEAN CORPUSCULAR HEMOGLOBIN 35.2 pg (27.0-33.0); MEAN CORPUSCULAR HGB CONC 34.1 g/dl (32.0-36.5); MEAN CORPUSCULAR VOLUME 103.1 fl (80.0-96.0); MONO % 15.8 % (2.0-8.0); NEUTROPHILS # 3.4 10^3/uL (1.5-8.5); NEUTROPHILS % 55.6 % (36.0-66.0); PLATELET COUNT, AUTOMATED 121 10^3/uL (150-450); RED BLOOD COUNT 4.18 10^6/uL (4.30-6.10); WHITE BLOOD COUNT 6.1 10^3/uL (4.0-10.0)
[2023-12-13 16:48] LABS: ALBUMIN 2.5 G/DL (3.2-5.2); ALKALINE PHOSPHATASE 106 U/L (46-116); ALT/SGPT 43 U/L (7.0-40); AST/SGOT 60 U/L (<34); BILIRUBIN,TOTAL 0.9 MG/DL (0.3-1.2); BLOOD UREA NITROGEN 15 MG/DL (9-23); CALCIUM LEVEL 8.1 MG/DL (8.3-10.6); CARBON DIOXIDE LEVEL 28 MMOL/L (20-31); CHLORIDE LEVEL 106 MMOL/L (98-107); CREATININE FOR GFR 0.98 MG/DL (0.70-1.30); GLOMERULAR FILTRATION RATE > 60.0 (>49); GLUCOSE, FASTING 78 MG/DL (74-106); POTASSIUM SERUM 4.2 MMOL/L (3.5-5.1); SODIUM LEVEL 138 MMOL/L (136-145); TOTAL PROTEIN 7.4 G/DL (5.7-8.2)
== END ==
LOC: M PLALAB 12:07
PROVIDERS: ATTEND Registered Nurse
DX: R60.0 Localized edema (principal)

== ENCOUNTER 2024-02-01 00:01 | Observation (INO) | payer MEDICARE ==
[~2024-02-01] VITALS: Ht 180.3 cm; Wt 111.8 kg
[2024-02-01 02:29] LABS: BASO % 0.5 % (0.0-1.0); EOS # 0.6 10^3/uL (0.0-0.5); EOS % 6.5 % (0.0-3.0); HEMATOCRIT 40.5 % (42.0-52.0); HEMOGLOBIN 14.2 g/dl (13.5-17.5); LYMPH # 1.2 10^3/uL (1.5-5.0); LYMPH % 13.9 % (24.0-44.0); MEAN CORPUSCULAR HEMOGLOBIN 35.8 pg (27.0-33.0); MEAN CORPUSCULAR HGB CONC 35.1 g/dl (32.0-36.5); MONO # 0.8 10^3/uL (0.0-0.8); MONO % 9.6 % (2.0-8.0); NEUTROPHILS % 68.7 % (36.0-66.0); PLATELET COUNT, AUTOMATED 141 10^3/uL (150-450); RED BLOOD COUNT 3.97 10^6/uL (4.30-6.10); WHITE BLOOD COUNT 8.8 10^3/uL (4.0-10.0)
[2024-02-01 02:43] LABS: INR 1.27; PARTIAL THROMBOPLASTIN TIME 35.1 SECONDS (24.8-34.2); PROTHROMBIN TIME 15.5 SECONDS (12.5-14.5)
[2024-02-01 02:56] LABS: ETHYL ALCOHOL (ETHANOL) 0.241 % (0.000-0.010)
[2024-02-01 02:59] LABS: BLOOD UREA NITROGEN 14 MG/DL (9-23); CALCIUM LEVEL 7.1 MG/DL (8.3-10.6); CARBON DIOXIDE LEVEL 24 MMOL/L (20-31); CHLORIDE LEVEL 96 MMOL/L (98-107); CREATININE FOR GFR 1.22 MG/DL (0.70-1.30); GLOMERULAR FILTRATION RATE > 60.0 (>49); GLUCOSE, FASTING 93 MG/DL (74-106); POTASSIUM SERUM 4.7 MMOL/L (3.5-5.1); SODIUM LEVEL 125 MMOL/L (136-145)
[2024-02-01 04:51] LABS: RSV AMPLIFICATION NEGATIVE (NEGATIVE)
[2024-02-01] MEDS ORDERED: ONDANSETRON 4MG 2ML VIAL IV PRN (05:35)
[2024-02-01] MEDS: NS 1,000 ML IV SCH (06:21)
[2024-02-01] MEDS ORDERED: AZEL0.1S NARES (07:33)
[2024-02-01] MEDS ORDERED: LOSA50TA28 PO (07:33)
[2024-02-01] MEDS ORDERED: MAGN400T2 PO (07:33)
[2024-02-01] MEDS ORDERED: FLUTISP NARES (07:33)
[2024-02-01] MEDS ORDERED: HOME MED LIST COMPLETE! XX SCH (07:35)
[2024-02-01] MEDS ORDERED: FLUTICASONE PROP 0.05% NASAL SPRAY 16 GM (FLONASE) NARES PRN (08:30)
[2024-02-01] MEDS ORDERED: DICYCLOMINE 10 MG CAP PO PRN (08:30)
[2024-02-01] MEDS ORDERED: LORazepam 2 MG TAB PO PRN (08:35)
[2024-02-01] MEDS: METOPROLOL SUCC (TopROL XL) 100MG *XL* TAB PO SCH (09:00)
[2024-02-01] MEDS: SOTALOL HCL 80 MG TAB PO SCH (09:00)
[2024-02-01] MEDS: APIXABAN 5 MG TAB (ELIQUIS) PO SCH (09:00)
[2024-02-01] MEDS: LOSARTAN 50MG TABLET PO SCH (09:00)
[2024-02-01] MEDS: SPIRONOLACTONE 25 MG TAB PO SCH (09:00)
[2024-02-01 09:49] LABS: BLOOD UREA NITROGEN 16 MG/DL (9-23); CALCIUM LEVEL 7.1 MG/DL (8.3-10.6); CARBON DIOXIDE LEVEL 21 MMOL/L (20-31); CHLORIDE LEVEL 98 MMOL/L (98-107); CREATININE FOR GFR 1.01 MG/DL (0.70-1.30); GLOMERULAR FILTRATION RATE > 60.0 (>49); GLUCOSE, FASTING 81 MG/DL (74-106); POTASSIUM SERUM 4.1 MMOL/L (3.5-5.1); SODIUM LEVEL 127 MMOL/L (136-145)
[2024-02-01 11:10] VITALS: BP 95/58; TEMP 98.6; O2SAT 97
[2024-02-01 11:24] VITALS: BP 95/58
[2024-02-01] MEDS: OMEPRAZOLE 20MG CAP PO SCH (12:13)
[2024-02-01] MEDS: FOLIC ACID 1MG TAB PO SCH (12:13)
[2024-02-01] MEDS: MULTIVITAMINS/MINERALS THERAP 1 TAB PO SCH (12:13)
[2024-02-01] MEDS: ESCITALOPRAM OXALATE 10 MG TAB (LEXAPRO) PO SCH (12:13)
[2024-02-01] MEDS: THIAMINE 200MG 2ML VIAL IM ONE (12:44)
[2024-02-01 14:00] VITALS: BP 97/47; TEMP 98.8; O2SAT 96
[2024-02-01] MEDS: LIDOCAINE 5% (LIDODERM) PATCH TD SCH (14:52)
[2024-02-01] MEDS: KETOROLAC 30 MG/ML 1ML VIAL IV ONE (15:47)
[2024-02-01 18:00] VITALS: BP 107/61; TEMP 99; O2SAT 96
[2024-02-01 20:00] VITALS: BP 106/62
[2024-02-01] MEDS: ACETAMINOPHEN TAB 650MG DOSE (2X325MG) PO PRN (20:23)
[2024-02-01 22:00] VITALS: BP 109/64; TEMP 98.9; O2SAT 97
[2024-02-02 02:00] VITALS: BP 102/58; TEMP 98.1; O2SAT 95
[2024-02-02 05:52] VITALS: BP 110/68; TEMP 98.2; O2SAT 96
[2024-02-02 06:14] LABS: HEMATOCRIT 37.8 % (42.0-52.0); HEMOGLOBIN 13.2 g/dl (13.5-17.5); MEAN CORPUSCULAR HEMOGLOBIN 35.3 pg (27.0-33.0); MEAN CORPUSCULAR HGB CONC 34.9 g/dl (32.0-36.5); MEAN CORPUSCULAR VOLUME 101.1 fl (80.0-96.0); PLATELET COUNT, AUTOMATED 105 10^3/uL (150-450); RED BLOOD COUNT 3.74 10^6/uL (4.30-6.10); WHITE BLOOD COUNT 5.7 10^3/uL (4.0-10.0)
[2024-02-02 06:32] LABS: BLOOD UREA NITROGEN 20 MG/DL (9-23); CALCIUM LEVEL 7.8 MG/DL (8.3-10.6); CARBON DIOXIDE LEVEL 28 MMOL/L (20-31); CHLORIDE LEVEL 106 MMOL/L (98-107); CREATININE FOR GFR 1.04 MG/DL (0.70-1.30); GLOMERULAR FILTRATION RATE > 60.0 (>49); GLUCOSE, FASTING 87 MG/DL (74-106); PHOSPHORUS LEVEL 3.3 MG/DL (2.4-5.1); POTASSIUM SERUM 3.9 MMOL/L (3.5-5.1); SODIUM LEVEL 138 MMOL/L (136-145)
[2024-02-02 08:29] VITALS: BP 104/62
[2024-02-02 10:00] VITALS: BP_SYST 104; BP_SYST 106; BP_DIAS 62; TEMP 98.1; O2SAT 95
[2024-02-02] MEDS ORDERED: LOSA25TA13 PO (11:55)
[2024-02-02] MEDS ORDERED: FOLI1TAB11 PO (11:55)
[2024-02-02] MEDS ORDERED: METO1TAB7 PO (11:55)
[2024-02-02] MEDS ORDERED: THIA100T7 PO (11:56)
[2024-02-02 12:02] LABS: BLOOD UREA NITROGEN 19 MG/DL (9-23); CALCIUM LEVEL 7.8 MG/DL (8.3-10.6); CARBON DIOXIDE LEVEL 28 MMOL/L (20-31); CHLORIDE LEVEL 105 MMOL/L (98-107); CREATININE FOR GFR 0.97 MG/DL (0.70-1.30); GLOMERULAR FILTRATION RATE > 60.0 (>49); GLUCOSE, FASTING 99 MG/DL (74-106); POTASSIUM SERUM 4.5 MMOL/L (3.5-5.1); SODIUM LEVEL 139 MMOL/L (136-145)
== END 2024-02-02 13:55 | disposition home or self-care (01) ==
LOC: EDBD 00:01 → M ED 00:01 → M ED INP 00:02 → M MSPAV 11:09
PROVIDERS: ADMIT Internal Medicine; ATTEND Internal Medicine
DX: S06.9X9A Unspecified intracranial injury with loss of consciousness of unspecified duration, initial encounter (principal); S00.81XA Abrasion of other part of head, initial encounter; W19.XXXA Unspecified fall, initial encounter; Y92.481 Parking lot as the place of occurrence of the external cause; Y99.9 Unspecified external cause status; F10.129 Alcohol abuse with intoxication, unspecified; E87.1 Hypo-osmolality and hyponatremia; I10 Essential (primary) hypertension; Z79.01 Long term (current) use of anticoagulants; I48.91 Unspecified atrial fibrillation; K21.9 Gastro-esophageal reflux disease without esophagitis; I25.10 Atherosclerotic heart disease of native coronary artery without angina pectoris; G47.33 Obstructive sleep apnea (adult) (pediatric); Z79.899 Other long term (current) drug therapy
CPT/HCPCS: 36415; 70450; 70486; 71110; 72125; 80048; 82077; 83735; 83930; 84100; 85025; 85027; 85610; 85730; 87631; 96361; 96372; 96374; 99284; G0378; J1885; J3411

== ENCOUNTER → 2024-02-19 | Outpatient (CLI) | payer MEDICARE ==
[~2024-02-19] MED LIST changes: +AZEL0.1S NARES; +FLUTISP NARES; +LOSA25TA13 PO; +LOSA50TA28 PO; +MAGN400T2 PO; +METO1TAB7 PO; +THIA100T7 PO
[2024-02-20 10:14] LABS: BASO # 0.1 10^3/uL (0.0-0.2); BASO % 0.9 % (0.0-1.0); EOS # 0.4 10^3/uL (0.0-0.5); EOS % 6.3 % (0.0-3.0); HEMATOCRIT 41.8 % (42.0-52.0); HEMOGLOBIN 14.2 g/dl (13.5-17.5); LYMPH % 15.2 % (24.0-44.0); MEAN CORPUSCULAR HEMOGLOBIN 35.5 pg (27.0-33.0); MEAN CORPUSCULAR VOLUME 104.5 fl (80.0-96.0); NEUTROPHILS # 4.3 10^3/uL (1.5-8.5); NEUTROPHILS % 63.3 % (36.0-66.0); PLATELET COUNT, AUTOMATED 127 10^3/uL (150-450); WHITE BLOOD COUNT 6.8 10^3/uL (4.0-10.0)
[2024-02-20 10:18] LABS: LIPASE 41 U/L (12-53)
[2024-02-20 10:19] LABS: AMYLASE 40 U/L (30-118)
[2024-02-20 10:20] LABS: ALBUMIN 2.5 G/DL (3.2-5.2); ALKALINE PHOSPHATASE 200 U/L (46-116); ALT/SGPT 29 U/L (7.0-40); AST/SGOT 50 U/L (<34); BILIRUBIN,TOTAL 1.3 MG/DL (0.3-1.2); BLOOD UREA NITROGEN 11 MG/DL (9-23); CALCIUM LEVEL 8.3 MG/DL (8.3-10.6); CARBON DIOXIDE LEVEL 32 MMOL/L (20-31); CHLORIDE LEVEL 104 MMOL/L (98-107); CREATININE FOR GFR 0.96 MG/DL (0.70-1.30); GLOMERULAR FILTRATION RATE > 60.0 (>49); GLUCOSE, FASTING 95 MG/DL (74-106); POTASSIUM SERUM 4.1 MMOL/L (3.5-5.1); SODIUM LEVEL 140 MMOL/L (136-145); TOTAL PROTEIN 7.3 G/DL (5.7-8.2)
== END ==
LOC: M LAB 16:14
PROVIDERS: ATTEND Physician Assistant Medical
DX: R10.13 Epigastric pain (principal); K70.30 Alcoholic cirrhosis of liver without ascites

== ENCOUNTER → 2024-02-21 | Outpatient (CLI) | payer MEDICARE | LOC: M PLAIMG 12:28 | PROVIDERS: ATTEND Registered Nurse | DX: R06.02 Shortness of breath (principal) ==

== ENCOUNTER → 2024-02-25 | Outpatient (CLI) | payer MEDICARE ==
[~2024-02-25] MED LIST changes: +ISOVUE-370 76% 100ML VIAL ONE
== END ==
LOC: M PLAIMG 09:05
PROVIDERS: ATTEND Registered Nurse
DX: R06.02 Shortness of breath (principal); K74.60 Unspecified cirrhosis of liver; J90 Pleural effusion, not elsewhere classified; I87.309 Chronic venous hypertension (idiopathic) without complications of unspecified lower extremity
CPT/HCPCS: 71260; Q9967

== ENCOUNTER → 2024-03-06 | Outpatient (CLI) | payer MEDICARE ==
[~2024-03-06] MED LIST changes: -ISOVUE-370 76% 100ML VIAL ONE
== END ==
LOC: M PLALAB 12:54
PROVIDERS: ATTEND Internal Medicine Cardiovascular Disease
DX: I42.0 Dilated cardiomyopathy (principal)

== ENCOUNTER → 2024-03-17 | Outpatient (CLI) | payer MEDICARE | LOC: M RAD 09:11 | PROVIDERS: ATTEND Physician Assistant Medical | DX: K74.60 Unspecified cirrhosis of liver (principal) ==

== ENCOUNTER → 2024-03-23 | Outpatient (CLI) | payer MEDICARE ==
[2024-03-23 16:30] LABS: BLOOD UREA NITROGEN 11 MG/DL (9-23); CALCIUM LEVEL 8.8 MG/DL (8.3-10.6); CARBON DIOXIDE LEVEL 32 MMOL/L (20-31); CHLORIDE LEVEL 99 MMOL/L (98-107); GLOMERULAR FILTRATION RATE > 60.0 (>49); GLUCOSE, FASTING 68 MG/DL (74-106); POTASSIUM SERUM 3.9 MMOL/L (3.5-5.1); SODIUM LEVEL 137 MMOL/L (136-145)
== END ==
LOC: M PLALAB 12:32
PROVIDERS: ATTEND Internal Medicine Cardiovascular Disease
DX: I42.0 Dilated cardiomyopathy (principal)

== ENCOUNTER 2024-04-16 07:38 | Day surgery (SDC) | payer MEDICARE ==
[~2024-04-16] VITALS: Ht 180.3 cm; Wt 105.2 kg
[2024-04-16] MEDS: NS 1,000 ML IV ONE (08:19)
[2024-04-16] MEDS ORDERED: LIDOCAINE 2% 100MG/5ML SDV (FOR ANES.) As Ordered ONE (08:25)
[2024-04-16] MEDS ORDERED: propofoL 200 MG/20 ML VIAL As Ordered ONE (08:25)
[2024-04-16] MEDS ORDERED: fentaNYL 100 MCG/2 ML INJECTION As Ordered ONE (08:25)
[2024-04-16 09:10] VITALS: TEMP 97.3
[2024-04-16 09:40] VITALS: BP 116/60; O2SAT 95
== END 2024-04-16 09:41 | disposition home or self-care (01) ==
LOC: M OPP 07:38
PROVIDERS: ATTEND Internal Medicine Gastroenterology
DX: Z86.010 Personal history of colon polyps (principal); D12.4 Benign neoplasm of descending colon; K64.8 Other hemorrhoids; K74.60 Unspecified cirrhosis of liver; I85.10 Secondary esophageal varices without bleeding; I48.91 Unspecified atrial fibrillation; Z95.810 Presence of automatic (implantable) cardiac defibrillator; G47.30 Sleep apnea, unspecified; Z99.89 Dependence on other enabling machines and devices; Z79.01 Long term (current) use of anticoagulants; Z79.52 Long term (current) use of systemic steroids; Z79.899 Other long term (current) drug therapy; Z88.1 Allergy status to other antibiotic agents
CPT/HCPCS: 43235; 45385; 88305; J3010

== ENCOUNTER → 2024-07-13 | Outpatient (CLI) | payer MEDICARE ==
[2024-07-13 15:31] LABS: BASO # 0.1 10^3/uL (0.0-0.2); BASO % 1.1 % (0.0-1.0); EOS # 0.4 10^3/uL (0.0-0.5); EOS % 7.6 % (0.0-3.0); HEMATOCRIT 39.9 % (42.0-52.0); HEMOGLOBIN 13.2 g/dl (13.5-17.5); LYMPH # 0.8 10^3/uL (1.5-5.0); LYMPH % 15.3 % (24.0-44.0); MEAN CORPUSCULAR HEMOGLOBIN 33.9 pg (27.0-33.0); MEAN CORPUSCULAR HGB CONC 33.1 g/dl (32.0-36.5); MEAN CORPUSCULAR VOLUME 102.6 fl (80.0-96.0); MONO # 0.8 10^3/uL (0.0-0.8); MONO % 15.5 % (2.0-8.0); NEUTROPHILS # 3.2 10^3/uL (1.5-8.5); NEUTROPHILS % 60.3 % (36.0-66.0); PLATELET COUNT, AUTOMATED 115 10^3/uL (150-450); RED BLOOD COUNT 3.89 10^6/uL (4.30-6.10); WHITE BLOOD COUNT 5.4 10^3/uL (4.0-10.0)
[2024-07-13 15:57] LABS: ALBUMIN 2.5 G/DL (3.2-5.2); ALKALINE PHOSPHATASE 108 U/L (46-116); ALT/SGPT 28 U/L (7.0-40); AST/SGOT 46 U/L (<34); BILIRUBIN,TOTAL 1.2 MG/DL (0.3-1.2); BLOOD UREA NITROGEN 12 MG/DL (9-23); CALCIUM LEVEL 8.4 MG/DL (8.3-10.6); CARBON DIOXIDE LEVEL 30 MMOL/L (20-31); CHLORIDE LEVEL 102 MMOL/L (98-107); GLOMERULAR FILTRATION RATE > 60.0 (>49); GLUCOSE, FASTING 114 MG/DL (74-106); POTASSIUM SERUM 3.9 MMOL/L (3.5-5.1); SODIUM LEVEL 137 MMOL/L (136-145); TOTAL PROTEIN 7.4 G/DL (5.7-8.2)
[2024-07-13 15:58] LABS: TOTAL 25(OH) VITAMIN D 101.6 NG/ML (20.0-100.0)
== END ==
LOC: M PLALAB 14:03
PROVIDERS: ATTEND Registered Nurse
DX: I11.9 Hypertensive heart disease without heart failure (principal); E83.51 Hypocalcemia

== ENCOUNTER → 2024-10-08 | Outpatient (CLI) | payer MEDICARE ==
[~2024-10-08] MED LIST changes: -AZEL0.1S NARES; +AZEL137S8 NARES
[2024-10-08 18:40] LABS: BASO # 0.1 10^3/uL (0.0-0.2); BASO % 0.9 % (0.0-1.0); EOS # 0.4 10^3/uL (0.0-0.5); EOS % 6.6 % (0.0-3.0); HEMATOCRIT 42.6 % (42.0-52.0); HEMOGLOBIN 14.1 g/dl (13.5-17.5); LYMPH # 0.8 10^3/uL (1.5-5.0); LYMPH % 14.2 % (24.0-44.0); MEAN CORPUSCULAR HEMOGLOBIN 33.7 pg (27.0-33.0); MEAN CORPUSCULAR HGB CONC 33.1 g/dl (32.0-36.5); MEAN CORPUSCULAR VOLUME 101.7 fl (80.0-96.0); MONO # 0.7 10^3/uL (0.0-0.8); MONO % 13.8 % (2.0-8.0); NEUTROPHILS # 3.4 10^3/uL (1.5-8.5); NEUTROPHILS % 64.1 % (36.0-66.0); PLATELET COUNT, AUTOMATED 128 10^3/uL (150-450); RED BLOOD COUNT 4.19 10^6/uL (4.30-6.10); WHITE BLOOD COUNT 5.3 10^3/uL (4.0-10.0)
[2024-10-08 18:45] LABS: ERYTHROCYTE SEDIMENTATION RATE 43 mm/hr (0-20)
[2024-10-08 19:04] LABS: ALBUMIN 2.5 G/DL (3.2-5.2); ALKALINE PHOSPHATASE 106 U/L (40-129); ALT/SGPT 24 U/L (7.0-40); AST/SGOT 40 U/L (<34); BILIRUBIN,TOTAL 1.1 MG/DL (0.3-1.2); BLOOD UREA NITROGEN 16 MG/DL (9-23); CALCIUM LEVEL 8.7 MG/DL (8.3-10.6); CARBON DIOXIDE LEVEL 29 MMOL/L (20-31); CHLORIDE LEVEL 102 MMOL/L (98-107); CREATININE FOR GFR 0.98 MG/DL (0.70-1.30); GLOMERULAR FILTRATION RATE > 60.0 (>49); GLUCOSE, FASTING 73 MG/DL (74-106); POTASSIUM SERUM 3.3 MMOL/L (3.5-5.1); SODIUM LEVEL 138 MMOL/L (136-145); TOTAL PROTEIN 8.1 G/DL (5.7-8.2)
[2024-10-08 19:05] LABS: THYROID PEROXIDASE ANTIBODY < 28.0 U/ML (<60.0)
[2024-10-08 19:06] LABS: FREE T4 1.13 NG/DL (0.89-1.76); THYROID STIMULATING HORMONE 1.704 uIU/ML (0.55-4.78)
== END ==
LOC: M LAB 17:59
PROVIDERS: ATTEND Registered Nurse
DX: E87.70 Fluid overload, unspecified (principal); R53.83 Other fatigue; R06.02 Shortness of breath

== ENCOUNTER → 2024-10-15 | Outpatient (CLI) | payer MEDICARE ==
[2024-10-15 16:29] LABS: ALBUMIN 2.6 G/DL (3.2-5.2); ALKALINE PHOSPHATASE 98 U/L (40-129); ALT/SGPT 27 U/L (7.0-40); AST/SGOT 40 U/L (<34); BILIRUBIN,TOTAL 1.2 MG/DL (0.3-1.2); BLOOD UREA NITROGEN 18 MG/DL (9-23); CALCIUM LEVEL 8.9 MG/DL (8.3-10.6); CARBON DIOXIDE LEVEL 30 MMOL/L (20-31); CHLORIDE LEVEL 102 MMOL/L (98-107); CREATININE FOR GFR 1.03 MG/DL (0.70-1.30); GLOMERULAR FILTRATION RATE > 60.0 (>49); GLUCOSE, FASTING 77 MG/DL (74-106); POTASSIUM SERUM 3.9 MMOL/L (3.5-5.1); SODIUM LEVEL 139 MMOL/L (136-145); TOTAL PROTEIN 8.2 G/DL (5.7-8.2)
== END ==
LOC: M PLALAB 12:21
PROVIDERS: ATTEND Nurse Practitioner Acute Care
DX: I50.22 Chronic systolic (congestive) heart failure (principal)

== ENCOUNTER → 2024-10-30 | Outpatient (REF) | payer MEDICARE | LOC: M LAB REF 10:16 | PROVIDERS: ATTEND Physician Assistant Medical | DX: R19.7 Diarrhea, unspecified (principal) ==

== ENCOUNTER → 2024-11-03 | Outpatient (CLI) | payer MEDICARE | LOC: M RAD 08:10 | PROVIDERS: ATTEND Physician Assistant Medical | DX: K70.30 Alcoholic cirrhosis of liver without ascites (principal) ==

== ENCOUNTER → 2024-11-03 | Outpatient (CLI) | payer MEDICARE ==
[2024-11-03 18:48] LABS: ALBUMIN 2.4 G/DL (3.2-5.2); ALKALINE PHOSPHATASE 93 U/L (40-129); ALT/SGPT 21 U/L (7.0-40); AST/SGOT 38 U/L (<34); BILIRUBIN,TOTAL 1.3 MG/DL (0.3-1.2); BLOOD UREA NITROGEN 20 MG/DL (9-23); CALCIUM LEVEL 8.2 MG/DL (8.3-10.6); CARBON DIOXIDE LEVEL 33 MMOL/L (20-31); CHLORIDE LEVEL 100 MMOL/L (98-107); CREATININE FOR GFR 1.06 MG/DL (0.70-1.30); GLOMERULAR FILTRATION RATE > 60.0 (>49); GLUCOSE, FASTING 68 MG/DL (74-106); POTASSIUM SERUM 3.2 MMOL/L (3.5-5.1); SODIUM LEVEL 139 MMOL/L (136-145); TOTAL PROTEIN 7.5 G/DL (5.7-8.2)
== END ==
LOC: M PLALAB 14:35
PROVIDERS: ATTEND Internal Medicine Cardiovascular Disease
DX: I42.0 Dilated cardiomyopathy (principal)

== ENCOUNTER → 2024-11-17 | Outpatient (CLI) | payer MEDICARE ==
[2024-11-17 15:32] LABS: BLOOD UREA NITROGEN 18 MG/DL (9-23); CALCIUM LEVEL 8.5 MG/DL (8.3-10.6); CARBON DIOXIDE LEVEL 32 MMOL/L (20-31); CHLORIDE LEVEL 102 MMOL/L (98-107); CREATININE FOR GFR 1.01 MG/DL (0.70-1.30); GLOMERULAR FILTRATION RATE > 60.0 (>49); GLUCOSE, FASTING 67 MG/DL (74-106); POTASSIUM SERUM 3.5 MMOL/L (3.5-5.1); SODIUM LEVEL 141 MMOL/L (136-145)
== END ==
LOC: M PLALAB 12:16
PROVIDERS: ATTEND Nurse Practitioner Acute Care
DX: I42.0 Dilated cardiomyopathy (principal)

== ENCOUNTER → 2024-12-08 | Outpatient (CLI) | payer MEDICARE | LOC: M RAD 12:14 | PROVIDERS: ATTEND Physician Assistant Medical | DX: R09.A2 Foreign body sensation, throat (principal) ==

== ENCOUNTER → 2024-12-11 | Outpatient (CLI) | payer MEDICARE ==
[2024-12-11 18:29] LABS: ALBUMIN 2.8 G/DL (3.2-5.2); ALKALINE PHOSPHATASE 109 U/L (40-129); ALT/SGPT 25 U/L (7.0-40); AST/SGOT 43 U/L (<34); BILIRUBIN,TOTAL 1.2 MG/DL (0.3-1.2); BLOOD UREA NITROGEN 18 MG/DL (9-23); CALCIUM LEVEL 8.4 MG/DL (8.3-10.6); CARBON DIOXIDE LEVEL 30 MMOL/L (20-31); CHLORIDE LEVEL 100 MMOL/L (98-107); CREATININE FOR GFR 1.05 MG/DL (0.70-1.30); GLOMERULAR FILTRATION RATE > 60.0 (>49); GLUCOSE, FASTING 79 MG/DL (74-106); POTASSIUM SERUM 3.7 MMOL/L (3.5-5.1); SODIUM LEVEL 139 MMOL/L (136-145); TOTAL PROTEIN 8.1 G/DL (5.7-8.2)
== END ==
LOC: M PLALAB 14:05
PROVIDERS: ATTEND Internal Medicine Cardiovascular Disease
DX: I42.0 Dilated cardiomyopathy (principal)

== ENCOUNTER → 2024-12-25 | Outpatient (CLI) | payer MEDICARE ==
[2024-12-25 16:27] LABS: BLOOD UREA NITROGEN 23 MG/DL (9-23); CALCIUM LEVEL 8.5 MG/DL (8.3-10.6); CARBON DIOXIDE LEVEL 27 MMOL/L (20-31); CHLORIDE LEVEL 101 MMOL/L (98-107); CREATININE FOR GFR 1.07 MG/DL (0.70-1.30); GLOMERULAR FILTRATION RATE > 60.0 (>49); GLUCOSE, FASTING 70 MG/DL (74-106); POTASSIUM SERUM 4.4 MMOL/L (3.5-5.1); SODIUM LEVEL 140 MMOL/L (136-145)
== END ==
LOC: M PLALAB 12:00
PROVIDERS: ATTEND Internal Medicine Cardiovascular Disease
DX: I50.22 Chronic systolic (congestive) heart failure (principal)

== ENCOUNTER → 2025-01-15 | Outpatient (REF) | payer MEDICARE | LOC: M LAB REF 09:25 | PROVIDERS: ATTEND Physician Assistant Medical | DX: R19.7 Diarrhea, unspecified (principal) ==

== ENCOUNTER → 2025-01-18 | Outpatient (CLI) | payer MEDICARE ==
[2025-01-18 18:38] LABS: ALBUMIN 2.5 G/DL (3.2-5.2); BILIRUBIN,DIRECT 0.5 MG/DL (<0.4); BILIRUBIN,TOTAL 1.2 MG/DL (0.3-1.2); TOTAL PROTEIN 7.9 G/DL (5.7-8.2)
[2025-01-18 18:40] LABS: FREE T4 1.14 NG/DL (0.89-1.76); THYROID STIMULATING HORMONE 2.119 uIU/ML (0.55-4.78)
[2025-01-18 18:57] LABS: IMMUNOGLOBULIN A 1633.5 MG/DL (40-350)
== END ==
LOC: M PLALAB 14:50
PROVIDERS: ATTEND Physician Assistant Medical
DX: K70.31 Alcoholic cirrhosis of liver with ascites (principal); E07.9 Disorder of thyroid, unspecified

== ENCOUNTER 2025-03-30 11:50 | Day surgery (SDC) | payer MEDICARE ==
[~2025-03-30] VITALS: Ht 180.3 cm; Wt 110.9 kg
[~2025-03-30 11:50] MED LIST changes: +GLYCOPYRROLATE INJ 0.2 MG/ML 2 ML VIAL As Ordered ONE; +LIDOCAINE 2% 100MG/5ML SDV (FOR ANES.) As Ordered ONE; +fentaNYL 100 MCG/2 ML INJECTION As Ordered ONE; +propofoL 200 MG/20 ML VIAL As Ordered ONE
[2025-03-30 13:35] VITALS: TEMP 97
[2025-03-30 14:05] VITALS: BP 141/72; O2SAT 98
== END 2025-03-30 14:06 | disposition home or self-care (01) ==
LOC: M OPP 11:50
PROVIDERS: ATTEND Internal Medicine Gastroenterology
DX: K52.9 Noninfective gastroenteritis and colitis, unspecified (principal); D12.5 Benign neoplasm of sigmoid colon; K64.8 Other hemorrhoids; I85.00 Esophageal varices without bleeding; Z79.1 Long term (current) use of non-steroidal anti-inflammatories (NSAID); Z79.899 Other long term (current) drug therapy; I48.91 Unspecified atrial fibrillation; Z95.0 Presence of cardiac pacemaker; J44.89 Other specified chronic obstructive pulmonary disease
CPT/HCPCS: 43244; 45380; 45385; 88305; J1596; J3010

== ENCOUNTER → 2025-06-24 | Outpatient (CLI) | payer MEDICARE ==
[~2025-06-24] MED LIST changes: +AMIT10TA11 PO; -AMIT10TA7 PO; -GLYCOPYRROLATE INJ 0.2 MG/ML 2 ML VIAL As Ordered ONE; -LIDOCAINE 2% 100MG/5ML SDV (FOR ANES.) As Ordered ONE; -fentaNYL 100 MCG/2 ML INJECTION As Ordered ONE; -propofoL 200 MG/20 ML VIAL As Ordered ONE
== END ==
LOC: M RAD 08:31
PROVIDERS: ATTEND Physician Assistant Medical
DX: K70.30 Alcoholic cirrhosis of liver without ascites (principal); K76.89 Other specified diseases of liver; R16.0 Hepatomegaly, not elsewhere classified; N28.1 Cyst of kidney, acquired

== ENCOUNTER 2025-07-22 12:28 | Day surgery (SDC) | payer MEDICARE ==
[~2025-07-22] VITALS: Ht 180.3 cm; Wt 562.0 kg
[~2025-07-22 12:28] MED LIST changes: +FURO40TA2 PO; +JARD1TAB PO; +POTA-151 PO; +SPIR50TA4 PO
[2025-07-22] MEDS ORDERED: LIDOCAINE 2% 100 MG/5 ML SDV (FOR ANES.) As Ordered ONE (14:00)
[2025-07-22 14:05] VITALS: TEMP 97.3
[2025-07-22 14:30] VITALS: BP 149/71; O2SAT 98
== END 2025-07-22 14:50 | disposition home or self-care (01) ==
LOC: M OPP 12:28
PROVIDERS: ATTEND Internal Medicine Gastroenterology
DX: I85.00 Esophageal varices without bleeding (principal); I48.91 Unspecified atrial fibrillation; Z95.810 Presence of automatic (implantable) cardiac defibrillator; G47.30 Sleep apnea, unspecified; Z88.1 Allergy status to other antibiotic agents; Z88.8 Allergy status to other drugs, medicaments and biological substances; Z79.01 Long term (current) use of anticoagulants; Z79.51 Long term (current) use of inhaled steroids; Z79.899 Other long term (current) drug therapy; J44.9 Chronic obstructive pulmonary disease, unspecified

== ENCOUNTER → 2025-08-02 | Outpatient (CLI) | payer MEDICARE ==
[~2025-08-02] MED LIST changes: +ZOLP10TA11 PO; -ZOLP10TA2 PO
[2025-08-02 18:16] LABS: ALT/SGPT 31 U/L (7.0-40); AST/SGOT 47 U/L (<34); BASO # 0.1 10^3/uL (0.0-0.2); BASO % 1.0 % (0.0-1.0); CALCIUM LEVEL 8.8 MG/DL (8.3-10.6); CARBON DIOXIDE LEVEL 24 MMOL/L (20-31); CHLORIDE LEVEL 103 MMOL/L (98-107); CREATININE FOR GFR 0.81 MG/DL (0.70-1.30); EOS # 0.7 10^3/uL (0.0-0.5); EOS % 9.4 % (0.0-3.0); ESTRADIOL 89.2 PG/ML (<39.8); GLOMERULAR FILTRATION RATE > 90.0 (>49); LUTEINIZING HORMONE 7.1 mIU/ML (1.5-9.3); LYMPH # 0.9 10^3/uL (1.5-5.0); LYMPH % 12.9 % (24.0-44.0); MONO # 1.3 10^3/uL (0.0-0.8); MONO % 17.3 % (2.0-8.0); NEUTROPHILS # 4.3 10^3/uL (1.5-8.5); NEUTROPHILS % 59.1 % (36.0-66.0); PLATELET COUNT, AUTOMATED 140 10^3/uL (150-450); POTASSIUM SERUM 4.5 MMOL/L (3.5-5.1); SODIUM LEVEL 137 MMOL/L (136-145)
[2025-08-02 18:17] LABS: PROLACTIN 8.28 NG/ML (2.1-17.7)
[2025-08-02 18:18] LABS: FREE T4 1.03 NG/DL (0.89-1.76); TESTOSTERONE 974 NG/DL (241-827)
[2025-08-04 11:32] LABS: HCG SERUM TUMOR MARKER QUANT < 5 mIU/mL (<5)
[2025-08-09 01:02] LABS: ESTROGENS TOTAL 689 pg/mL (< OR = 404)
== END ==
LOC: M PLALAB 12:42
PROVIDERS: ATTEND Plastic Surgery Surgery of the Hand
DX: N62 Hypertrophy of breast (principal); Z79.899 Other long term (current) drug therapy

== ENCOUNTER → 2025-09-10 | Outpatient (CLI) | payer MEDICARE ==
[2025-09-10 14:57] LABS: CALCIUM LEVEL 8.6 MG/DL (8.3-10.6); CARBON DIOXIDE LEVEL 30 MMOL/L (20-31); CHLORIDE LEVEL 102 MMOL/L (98-107); CREATININE FOR GFR 0.94 MG/DL (0.70-1.30); GLOMERULAR FILTRATION RATE > 90.0 (>49); POTASSIUM SERUM 4.1 MMOL/L (3.5-5.1); SODIUM LEVEL 141 MMOL/L (136-145)
== END ==
LOC: M PLALAB 12:03
PROVIDERS: ATTEND Internal Medicine Cardiovascular Disease
DX: I42.0 Dilated cardiomyopathy (principal)

== ENCOUNTER → 2025-10-08 | Outpatient (CLI) | payer MEDICARE ==
[2025-10-08 14:32] LABS: ALT/SGPT 30.0 U/L (7.0-40); AST/SGOT 50.0 U/L (<34); CALCIUM LEVEL 8.5 MG/DL (8.3-10.6); CARBON DIOXIDE LEVEL 30.0 MMOL/L (20-31); CHLORIDE LEVEL 100.0 MMOL/L (98-107); CREATININE FOR GFR 0.95 MG/DL (0.70-1.30); GLOMERULAR FILTRATION RATE 89.9 (>49); MAGNESIUM LEVEL 2.1 MG/DL (1.8-2.4); POTASSIUM SERUM 4.2 MMOL/L (3.5-5.1); SODIUM LEVEL 138.0 MMOL/L (136-145)
== END ==
LOC: M PLALAB 09:48
PROVIDERS: ATTEND Nurse Practitioner Family
DX: I42.0 Dilated cardiomyopathy (principal)

== ENCOUNTER → 2025-10-11 | Outpatient (CLI) | payer MEDICARE | LOC: M PLAIMG 13:18 | PROVIDERS: ATTEND Nurse Practitioner Family | DX: R06.00 Dyspnea, unspecified (principal) ==